=== PATIENT | male | born 1985 | race Caucasian/White ===

== ENCOUNTER 2024-03-12 07:36 | Emergency (ER) | payer OTHER ==
[~2024-03-12] VITALS: Ht 167.6 cm; Wt 108.9 kg
[~2024-03-12 07:36] MED LIST: Bactrim Ds Tab1 EACH PO; CEPH500 PO; IBUP600 PO; KETO10 PO; Naprosyn500 MG PO; Norco 10-325 T1 EACH PO; Norco 5-325 Ta1 EACH PO; Pepcid40 MG PO; Zofran Odt4 MG SL
[2024-03-12 07:51] VITALS: BP 188/114
[2024-03-12] MEDS ORDERED: ATORVASTATIN CA20 MG PO (07:55)
[2024-03-12] MEDS ORDERED: Lisinopril2.5 MG (07:55)
[2024-03-12] MEDS ORDERED: HYDCHL25 PO (07:55)
[2024-03-12] MEDS ORDERED: LISI20 PO (07:55)
[2024-03-12] MEDS ORDERED: HYDROcodone 5-APAP 325 TAB PO ONE (09:10)
[2024-03-12] MEDS ORDERED: AMOCLA875 PO (09:36)
== END 2024-03-12 09:59 | disposition home or self-care (01) ==
LOC: ER 07:36
DX: K11.20 Sialoadenitis, unspecified (principal); I10 Essential (primary) hypertension; F17.200 Nicotine dependence, unspecified, uncomplicated; Z87.19 Personal history of other diseases of the digestive system; Z79.899 Other long term (current) drug therapy; Z59.89 Other problems related to housing and economic circumstances
CPT/HCPCS: 76536; 99283-25; A9270

== ENCOUNTER 2024-03-27 09:18 | Emergency (ER) | payer OTHER ==
[~2024-03-27] VITALS: Ht 167.6 cm; Wt 108.9 kg
[~2024-03-27 09:18] MED LIST changes: +AMOCLA875 PO; +ATORVASTATIN CA20 MG PO; +HYDCHL25 PO; +LISI20 PO; +Lisinopril2.5 MG
[2024-03-27 10:22] VITALS: BP 154/85
[2024-03-27] MEDS ORDERED: Ibuprofen 600 MG Tab PO ONE (11:05)
[2024-03-27 11:28] LABS: BASOPHILS ABSOLUTE AUTO 0.09 K/mm3 (0.00-0.23); BASOPHILS PERCENT AUTO 1 % (0-2); EOSINOPHILS ABSOLUTE AUTO 0.11 K/mm3 (0.00-0.68); EOSINOPHILS PERCENT AUTO 1 % (0-6); Hematocrit 43.1 % (37.0-53.0); Hemoglobin 15.2 g/dL (13.5-17.5); IMMATURE GRAN ABSOLUTE AUTO 0.03 K/mm3 (0.00-0.10); IMMATURE GRAN PERCENT AUTO 0 % (0-1); LYMPHOCYTES ABSOLUTE AUTO 1.64 K/mm3 (0.84-5.20); LYMPHOCYTES PERCENT AUTO 18 % (21-46); MONOCYTES ABSOLUTE AUTO 0.54 K/mm3 (0.16-1.47); MONOCYTES PERCENT AUTO 6 % (4-13); Mean Corpuscular HGB 30.5 pg (26.0-34.0); Mean Corpuscular HGB Conc 35.3 g/dL (31.5-36.5); Mean Corpuscular Volume 87 fL (80-100); Mean Platelet Volume 10.8 fL (9.1-12.4); NEUTROPHILS ABSOLUTE AUTO 6.89 K/mm3 (1.96-9.15); NEUTROPHILS PERCENT AUTO 74 % (41-73); Platelet Count 206 K/mm3 (150-400); RDW Coefficient Variation 12.3 % (11.7-14.2); RDW Standard Deviation 38.7 fL (35.1-46.3); Red Blood Cell Count 4.98 M/mm3 (4.30-5.90)
[2024-03-27 11:45] LABS: Albumin, Blood 4.3 g/dL (3.4-5.0); Albumin/Globulin Ratio 1.2 (0.8-1.8); Bilirubin, Total 0.6 mg/dL (0.1-1.0); Calcium, Blood 9.4 mg/dL (8.5-10.1); Creatinine, Blood 0.77 mg/dL (0.60-1.20); Globulin, Blood 3.5 g/dL (2.2-4.0); Total Protein, Blood 7.8 g/dL (6.4-8.2)
[2024-03-27] MEDS ORDERED: ZEBUTAL 50-3251 EAC1 PO (12:58)
[2024-03-27] MEDS ORDERED: Acetamin/Butalbital/Caffeine Tab PO ONE (13:00)
== END 2024-03-27 13:34 | disposition home or self-care (01) ==
LOC: ER 09:18
PROVIDERS: Emergency Medicine
DX: R51.9 Headache, unspecified (principal); F17.200 Nicotine dependence, unspecified, uncomplicated; Z79.899 Other long term (current) drug therapy
CPT/HCPCS: 70450; 80053; 85025; 99284-25; A9270

== ENCOUNTER 2024-11-08 14:15 | Day surgery (SDC) | payer OTHER ==
[~2024-11-08 14:15] MED LIST changes: +ZEBUTAL 50-3251 EAC1 PO
== END 2024-11-08 23:00 | disposition home or self-care (01) ==
LOC: CT 14:15
DX: I77.810 Thoracic aortic ectasia (principal)
CPT/HCPCS: 71275; 74175; Q9967